=== PATIENT | female | born 1990 | race Caucasian/White ===

== ENCOUNTER 2017-05-02 11:40 | Emergency (ER) | payer BC ==
[~2017-05-02] VITALS: Ht 167.6 cm; Wt 72.7 kg
[~2017-05-02 11:40] MED LIST: AMOXICILLIN 50500 MG; CRYSELLE 30 MCG1 TAB PO; FLAGYL500 MG PO; PRILOSEC 20MG20 MG PO; ZOFRAN ODT4 MG PO; [UNRECOGNIZED DRUG - OTHER] PO
[2017-05-02] MEDS ORDERED: LO LOESTRIN FE1 TAB PO (11:59)
[2017-05-02 12:05] LABS: BASO % 0.4 % (0.0-2.0); EOS % 0.3 % (0-4.0); GRAN # 6.9 (1.4-6.5); GRAN % 72.3 % (42.2-75.2); HEMATOCRIT 42.9 % (37.0-47.0); HEMOGLOBIN 15.3 g/dl (12.5-16.0); LYMPH % 20.5 % (20.0-51.0); MEAN CELL VOLUME 85 fl (80.0-100.0); MEAN CORPUSCULAR HEMOGLOBIN 30 pg (27.0-31.0); MEAN CORPUSCULAR HGB CONC 36 g/dl (33.0-37.0); MONO # 0.6 (0.1-0.6); MONO % 6.2 % (1.7-9.3); PLATELET COUNT 254 K/mm3 (130-400); RED BLOOD COUNT 5.04 M/mm3 (4.10-5.30); REDCELL DISTRIBUTION WIDTH-CV 12.4 % (11.5-14.5)
[2017-05-02 12:16] LABS: ALBUMIN 4.5 gm/dL (3.5-5.0); BILIRUBIN,TOTAL 1.5 mg/dL (0.0-1.0); CALCIUM 9.2 mg/dL (8.4-10.2); CREATININE, serum 0.54 mg/dL (0.52-1.25); POTASSIUM 3.3 mmol/L (3.4-5.0); TOTAL PROTEIN 7.8 gm/dL (6.4-8.2)
[2017-05-02] MEDS ORDERED: ZOFRAN ODT4 MG PO (13:19)
[2017-05-02 14:00] VITALS: BP 133/80; PULSE 65
== END 2017-05-02 14:23 | disposition home or self-care (01) ==
LOC: COL.ER 11:40
PROVIDERS: Emergency Medicine
DX: R19.7 Diarrhea, unspecified (principal); R11.2 Nausea with vomiting, unspecified; G40.909 Epilepsy, unspecified, not intractable, without status epilepticus
CPT/HCPCS: J2060; J2405; J7030